=== PATIENT | female | born 1980 | race African-American/Black ===

== ENCOUNTER 2019-04-19 12:50 | Emergency (ER) | payer OTHER ==
[~2019-04-19] VITALS: Ht 170.2 cm; Wt 77.1 kg
[~2019-04-19 12:50] MED LIST: IBUPROFEN 200200 M1 PO; TRINATE TABLET1 TAB PO
[2019-04-19] MEDS ORDERED: VALIUM2 MG PO (15:00)
[2019-04-19] MEDS ORDERED: MOBIC15 MG PO (15:00)
[2019-04-19 15:34] VITALS: BP 116/87
== END 2019-04-19 15:30 | disposition home or self-care (01) ==
LOC: ER 12:50
DX: S00.93XA Contusion of unspecified part of head, initial encounter (principal); V89.2XXA Person injured in unspecified motor-vehicle accident, traffic, initial encounter; Y93.89 Activity, other specified; Y92.488 Other paved roadways as the place of occurrence of the external cause; Y99.8 Other external cause status